=== PATIENT | female | born 1990 | race Caucasian/White ===

== ENCOUNTER 2019-04-29 07:18 | Day surgery (SDC) | payer OTHER ==
[~2019-04-29 07:18] MED LIST: DESFLURANE 15 MIN
[2019-04-29] MEDS ORDERED: BUPIVACAINE 0.25% (MPF) 30 ML INJ (10:19)
[2019-04-29] MEDS ORDERED: ONDANSETRON 4 MG INJ IV (10:30)
[2019-04-29] MEDS ORDERED: OXYCODONE/ACETAMINOPHEN (5/325) TAB PO (10:30)
[2019-04-29] MEDS ORDERED: HYDROmorphONE 1 MG/5 ML IV SYRINGE IV (10:30)
[2019-04-29] MEDS ORDERED: FENTAnyl 50 MCG/ML VIAL IV (10:30)
[2019-04-29] MEDS ORDERED: CEFAZOLIN 1 GM INJ (10:34)
[2019-04-29] MEDS ORDERED: ROCURONIUM 50 MG INJ (10:34)
[2019-04-29] MEDS ORDERED: MIDAZOLAM 1 MG/ML 2 ML INJ (10:34)
[2019-04-29] MEDS ORDERED: PROPOFOL 20 ML (10:34)
[2019-04-29] MEDS ORDERED: KETOROLAC 30 MG INJ (10:35)
[2019-04-29] MEDS ORDERED: ONDANSETRON 4 MG INJ (10:35)
[2019-04-29] MEDS ORDERED: GLYCOPYRROLATE 0.4 MG INJ (11:43)
[2019-04-29] MEDS ORDERED: NEOSTIGMINE 3 MG/3 ML SYRINGE (11:43)
[2019-04-29] MEDS: BUPIVACAINE 0.25% (MPF) 30 ML INJ INJ ×2 (11:57)
[2019-04-29] MEDS ORDERED: HYDROCODONE/APAP (5/325) TAB PO (12:00)
[2019-04-29] MEDS ORDERED: SOD CHLORIDE 0.9% 1,000 ML IV (13:30)
[2019-04-29] MEDS ORDERED: CEFAZOLIN 2 GM/50 ML (PMX) 50 ML IVPB (13:30)
== END 2019-04-29 15:10 | disposition home or self-care (01) ==
LOC: SDS 07:18
DX: K80.10 Calculus of gallbladder with chronic cholecystitis without obstruction (principal)
CPT/HCPCS: 47562; 84703; 88304